=== PATIENT | female | born 1935 | race Caucasian/White ===

== ENCOUNTER 2022-12-06 11:00 | Outpatient (REF) | payer MEDICARE, SELFPAY ==
[2022-12-06 12:48] LABS: Vitamin B12 451 pg/mL (200-900)
== END 2022-12-06 11:01 | disposition home or self-care (01) ==
LOC: HO.LAB 11:00
PROVIDERS: PCP Student in an Organized Health Care Education/Training Program; Visit Provider Psychiatry & Neurology Neurology
DX: G31.84 Mild cognitive impairment of uncertain or unknown etiology (principal)
CPT/HCPCS: 36415; 82607

== ENCOUNTER 2024-08-13 11:45 | Outpatient (AMB) | payer MEDICARE, SELFPAY ==
--- NOTE | 2024-08-13 12:11 | A.OFFVIS_ITS ---
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 She took topiramate before prescription and did. Now she was feeling better and was not having any active symptoms. [facility] Medical History (Updated 08/13/24 @ 12:19 by Siddharth Medeiros MD) Hypertension GERD (gastroesophageal reflux disease) Migraine without aura MCI (mild cognitive impairment) Review of Systems Const Details: Constitutional:?No fever, chills, fatigue, weight loss, or night sweats. HEENT:?No headache, vision changes, hearing loss, nasal congestion, sore throat. Neurological:?No dizziness, syncope, seizures, numbness, tingling, weakness, tremors, memory loss. Psychiatric:?No anxiety, depression, mood swings, sleep disturbance, or lim ucinations. Endocrine:?No heat/cold intolerance, polydipsia, polyuria, or hair/skin changes. Hematologic/Lymphatic:?No easy bruising, bleeding, or lymphadenopathy. Integumentary (Skin):?No rash, lesions, itching, or color changes. ? Physical Exam Neuro Other: Mental Status: Alert and oriented to person, place, and time. Normal attention. Normal spontaneous speech, fluency, and comprehension. No obvious issues with mood and memory. Affect is appropriate. Cranial Nerves: CN II: Visual morgan full to confrontation, visual acuity intact. CN III, IV, : Pupils equal, round, reactive to light and accommodation. Extraocular movements are normal. CN V: Facial sensation is normal. CN VII: Facial movements symmetrical. CN VIII: Hearing intact to bedside conversation is normal. CN IX, X: Palate elevates symmetrically. CN XI: Shoulder shrug and head turn symmetrical. CN XII: Tongue midline without atrophy or fasciculations. Extrapyramidal: Full facial expressions and blinking. No rigidity. Movements are appropriate with no tremor or abnormality. Speech: Normal; no dysarthria or tremor. Assessment & Plan Assessment & Plan (1) Migraine equivalent: Code(s): G43.109 - Migraine with aura, not intractable, without status migrainosus Category: Medical (2) Benign positional vertigo: Code(s): H81.10 - Benign paroxysmal vertigo, unspecified ear Category: Medical Qualifiers: Laterality: unspecified laterality Qualified Code(s): H81.10 - Benign paroxysmal vertigo, unspecified ear Plan Impression: 1. Migraine and migraine equivalent syndrome 2. Vertigo probably of positional benign type. Recommendations: As symptoms were resolved. No further prescription wasgiven. Coding Level of Care Code Tele Est Pt Level 4 (53057) Diagnoses Migraine equivalent G43.109 Benign paroxysmal positional vertigo, unspecified laterality H81.10 Laterality: unspecified laterality
--- OUTSIDE RECORDS SUMMARY | 2024-08-13 12:56 | XMS_ITS | Patient Health Record ---
Author Organization [facility] Address [address] [place] [address] Care Team Providers Care Logistics Research Engineer Name Role Phone Lynne Huffman Primary Care Provider Reason For Referral No Information Medications Medication SIG (Take, Route, Frequency, Duration) Notes Start Date End Date Status Lisinopril 10 MG Tablet 1 tablet Orally Once a day; Duration: 30 day(s) Active Aspirin 81 MG Tablet Delayed Release 1 tablet Orally Once a day; Duration: 30 day(s) Active Plan Of Treatment No Information
--- OUTSIDE RECORDS SUMMARY | 2024-08-13 12:56 | XMS_ITS | Clinical Summary ---
Author Organization [facility] Address [address] [place] [address] Care Team Providers Care Veneer Sorter Name Role Phone Shakira Rodas PA-C Primary Care Provider Source Comments PLEASE NOTE, if this patient is a minor, it may be UNLAWFUL to discuss sensitive information that is contained in these records (such as FAMILY PLANNING, MENTAL HEALTH or SUBSTANCE ABUSE) with the minor patient's parent or other person without the patient's specific authorization.[facility] Allergies No known active allergies Medications pantoprazole (PROTONIX) 40 mg EC tabletIndications: heartburn Take 1 Tablet by mouth every morning before breakfast Indications: heartburn 90 Tablet 2 04/04/19 22 Active enalapril maleate (VASOTEC) 10 mg tabletIndications: hypertension Take 1 Tablet by mouth once daily Indications: high blood pressure 90 Tablet 2 04/04/19 22 Active simvastatin (ZOCOR) 40 mg tabletIndications: hypercholesterolem ia Take 1 Tablet by mouth nightly at bedtime Indications: high cholesterol 90 Tablet 2 04/04/19 22 Active cholecalciferol, vitamin D3, 50 mcg (2,000 unit) capsuleIndications :Takes daily multivitamins Take 1 Capsule by mouth once daily For heathy bones 90 Capsule 2 04/04/19 22 Active acetaminophen (TYLENOL 8 HOUR) 650 mg CR tabletIndications: Generalized osteoarthritis of multiple sites Take 1 Tablet by mouth every 8 (eight) hours as needed for pain 60 Tablet 2 04/04/19 22 Active cetirizine (ZYRTEC) 10 mg tabletIndications: Seasonal allergic rhinitis due to pollen TAKE 1 TABLET BY MOUTH EVERY DAY 90 Tablet 01/03/20 22 Active Active Problems Problem Noted Date Diagnosed Date Takes daily multivitamins 04/04/2021 Essential hypertension 01/05/2021 Mixed hyperlipidemia 01/05/2021 Chronic GERD 01/05/2021 Class 1 obesity 01/05/2021 Generalized osteoarthritis of multiple sites 02/2020 Immunizations Immunization Administration Dates Next Due Moderna COVID-19 Vaccine, bl ue cap purple label, 6-11 Primary Series 06/28/2021 Moderna COVID-19 Vaccine, re d cap blue label, 12+ Primary Series 12/22/2020 PFIZER COVID VACCINE, PURPLE CAP, 12+ 12/22/2020 ,03/31/2020 TDAP 04/04/2021 ZOSTER VACCINE, RECOMBINANT (SHINGRIX) ,04/04/2021 Social History Tobacco Use Types Packs/Day Years Used Date Smoking Tobacco: Never Smokeless Tobacco: Never Tobacco Cessation:Counseling Given: Yes Alcohol Use Standard Drinks/Week Comments Never 0 (1 standard drink = 0.6 oz pur e alcohol) Social Connections Answer Date Recorded Connectedness 0 10/18/2023 Financial Resource Strain Answer Date R ecorded Financial Resource Strain 0 2020 Stress Answer Date Recorded Stress 0 01/05/2021 Physical Activity Answer Date Recorded Physical Activity 0 01/05/2021 Food Insecurity Answer Date Recorded Food 0 11/01/2023 Transportation Needs Answer Date Record ed Transportation 0 01/05/2021 Housing Stability Answer Date Recorded Housing 0 01/05/2021 Safety and Environment Answer Date Nhan rded Safety 0 01/05/2021 Utilities Answer Date Recorded Utilities 0 01/05/2021 Employment Answer Date Recorded Stress 0 10/18/2023 Comments No Sex and Gender Information Value Date Recorded Sex Assigned at Female 01/05/2021 9:11 AM PST Legal Sex Female 8:37 AM PDT Gender Identity Female 01/05/2021 9:11 AM PST Sexual Orientation Straight 01/05/2021 9: 11 AM PST Last Filed Vital Signs Vital Sign Reading Time Taken Comments Blood Pressure 142/80 07/07/2021 11:02 AM EDT Pulse 73 07/07/2021 11:02 AM EDT Temperature 36.9 C (98.4 F) 07/07/2021 11:02 AM EDT Respiratory Rate 16 07/07/2021 11:02 AM EDT Oxygen Saturation 97% 07/07/2021 11:02 AM EDT Inhaled Oxygen Concentration - - Weight 79.4 kg (175 lb) 07/07/2021 11:02 AM EDT Height 160 cm (5' 3 ) 07/07/2021 11:02 AM EDT Body Mass Index 31 07/07/2021 11:02 AM EDT Plan of Treatment Health Maintenance Due Date Last Done Comments Tobacco Screening 1936 Advanced Care Planning 1935 Medicare Annual Wellness Visit 1954 Imm-Pneumococcal 50+ (1 of 1 - PCV) 1986 Bone Density Screening 2001 Imm-RSV (adult) (1 - 1-dose 75+ series) 2011 Annual Wellness (Adult): Indicated (All Coverage) 04/04/2022 04/04/2021 Falls Prevention 04/04/2022 04/04/2021 [id number]-24 ( season) 2023 06/28/2021, 12/22/2020, 12/22/2020, Additional history exists Alcohol and Drug Screen 02/06/2024 04/04/2021, 01/05 Depression Annual Screen 02/06/2024 04/04/2021 Imm-Influenza (#1) 2024 Imm-DTaP/Tdap/Td (2 - Td or Tdap) 04/04/2031 022 Imm-Zoster, Recombinant Completed 07/07/2021, 04/04 Insurance [employer] MEDICARE COMPLETE CHO Care Teams Veneer Sorter Relationship Specialty Start Date End Date Shakira Rodas PA-C [address] [place] [address] PCP - General 05/13/21
--- OUTSIDE RECORDS SUMMARY | 2024-08-13 12:56 | XMS_ITS | Clinical Summary ---
Author Organization [facility] Address [address] [place] [address] Phone Care Team Providers Care Tourist Camp Attendant Name Role Phone Damian Murray MD Primary Care Provider [phone] Allergies Active Allergy Reactions Criticality Noted Date Comments Other 10/18/2021 seasonal Medications meclizine (ANTIVERT) 25 mg tablet Take 1 Tablet by mouth every 8 hours. Active cetirizine (ZyrTEC) 10 mg tablet TAKE 1 TABLET BY MOUTH DAILY 30 tablet 2 4 Active Calcium 500 With D 500 mg-10 mcg (400 unit) per tablet TAKE 1 TABLET BY MOUTH DAILY WITH BREAKFAST 30 tablet 1 4 Active enalapril (VASOTEC) 10 mg tablet TAKE 1 TABLET BY MOUTH DAILY 100 tablet 2 5 Active topiramate (TOPAMAX) 25 mg tablet Take 1 tablet (25 mg total) by mouth. at bedtime. 5 Active simvastatin (ZOCOR) 40 mg tablet TAKE 1 TABLET BY MOUTH AT BEDTIME 90 tablet 1 5 Active diclofenac (Voltaren Arthritis Pain) 1 % topical gel Apply 2 g topically 4 (four) times a day. 150 g 1 5 Active omeprazole (PriLOSEC) [address] capsule Take 1 capsule (20 mg total) by mouth 1 (one) time each day. Do not crush or chew. 90 each 5 11/12/19 25 Active omeprazole (PriLOSEC) [address] capsule Take 1 capsule (20 mg total) by mouth 1 (one) time each day. Do not crush or chew. 90 each 5 08/14/19 25 Discontinu ed(Reorder ) Active Problems Problem Noted Date Diagnosed Date Low vitamin D level 02/23/2022 Gastroesophageal reflux disease without esophagi tis 10/18/2021 Overview (11/14/2023): Last Assessment & Plan: Pt has H/O GERD. on pantoprazole for> 2 Y . plan: hold it for now. Expain the reason. Pt understands. Mixed hyperlipidemia 10/18/2021 Overview (11/14/2023): Last Assessment & Plan: Pt on simvastatin. plan: rechck lipid panel and cont same med. Refil given. Primary hypertension 10/18/2021 Overview (11/14/2023): Last Assessment & Plan: Today BP 110/67, On enalapril. Compliant. plan cont same med labs ordered. Stress incontinence of urine 10/18/2021 Overview (11/14/2023): Last Assessment & Plan: Pt C/C stress incontinence. Plan: Kegel exercise expained. She understand it. Encounters Date Type Department Care Team Description 06/04/2024 10:00 AM EDT Consult Orthopedic Surgery [address] [place] [phone] Lisa Rockwell PA Trigger finger, left middle finger (Primary Dx); Generalized osteoarthritis of hand; Left carpal tunnel syndrome 05/22/2024 9:00 AM EDT Office Visit Internal Medicine [address] [place] [phone] Damian Murray MD Generalized osteoarthritis of hand (Primary Dx); Anorexia; Gastroesophageal reflux disease without esophagitis; Migraine without status migrainosus, not intractable, unspecified migraine type; Stress incontinence of urine 05/22/2024 Telephone Internal Medicine [address] [place] [address] Damian Murray MD from Last 3 Months Immunizations Name Administration Dates Next Due Influenza trivalent, 0.5mL ( Fluzone High-dose) 65yo and older 10/18/2021 Social History Tobacco Use Types Packs/Day Years Used Date Smoking Tobacco: Never Smokeless Tobacco: Never Tobacco Cessation:Counseling Given: Not Answered Alcohol Use Standard Drinks/Week Comments Never 0 (1 standard drink = 0.6 oz pur e alcohol) Comments Unknown Sex and Gender Information Value Date Recorded Sex Assigned at Not on file Legal Sex Female 4:55 AM EST Gender Identity Not on file Sexual Orientation Not on file Obstetrics History Last Filed Vital Signs Vital Sign Reading Time Taken Comments Blood Pressure 124/82 05/22/2024 9:08 AM EDT Pulse 73 05/22/2024 9:08 AM EDT Temperature 36.1 C (96.9 F) 04/22/2024 11:17 AM EDT Respiratory Rate - - Oxygen Saturation 100% 05/22/2024 9:08 AM EDT Inhaled Oxygen Concentration - - Weight 68 kg (150 lb) 06/04/2024 10:11 AM EDT Height 160 cm (5' 3 ) 06/04/2024 10:11 AM EDT Body Mass Index 26.57 06/04/2024 10:11 AM EDT Plan of Treatment Upcoming Encounters Date Type Department Care Team (Late st Contact Info) Description 09/04/2024 1:00 PM EDT Office Visit Orthopedic Surgery - [place] [facility] [address] [place] [phone] Lisa Rockwell PA [address] [facility] [address] [place] [address] 11/24/2024 1:00 PM EDT Office Visit Internal Medicine [facility] [address] [facility] [address] [place] [phone] Damian Murray MD [address] [facility] [address] [place] [address] Health Maintenance Due Date Last Done Comments Pneumococcal Vaccine: 50+ Years (1 of 1 - PCV) 1986 RSV Immunization Adult Patients (1 - 1-dose 75+ series) 2011 Depression Screening 01/15/2022 Falls Risk Assessment 01/15/2022 Osteoporosis Screening (Bone Density Screening) 01/15/2022 Social Influencers of Health Screening 01/15/2022 COVID-19 Vaccine (3 - 2023-2 5 season) 2023 06/28/2021, 12/22/2020, 03/31/2020 Hypertension/CHF/CAD Annual BMP Blood Test 06/24/2024 06/25/2023, 06/25/2023, 07/07/2021 Influenza Vaccine (#1) 2024 10/18/2021 Cholesterol Screening (Lipid Panel) 06/24/2028 06/25/2023, 06/25/2023, 01/05/2021 DTaP,Tdap,and Td Vaccines (2 - Td or Tdap) 04/04/2031 04/04/2021 Zoster Vaccines Completed 07/07/2021, 04/04/2021 HIB Vaccines Aged Out No longer eligi ble based on patient's age to complete this topic HPV Vaccines Aged Out No longer eligi ble based on patient's age to complete this topic Hepatitis A Vaccines Aged Out No long er eligible based on patient's age to complete this topic Hepatitis B Vaccines Aged Out No long er eligible based on patient's age to complete this topic IPV Vaccines Aged Out No longer eligi ble based on patient's age to complete this topic MMR Vaccines Aged Out No longer eligi ble based on patient's age to complete this topic Meningococcal ACWY Vaccine Aged Out N o longer eligible based on patient's age to complete this topic Meningococcal B Vaccine Aged Out No l onger eligible based on patient's age to complete this topic RSV Immunization Patients Under 20 months Aged Out No longer eligible b ased on patient's age to complete this topic Varicella Vaccines Aged Out No longer eligible based on patient's age to complete this topic Procedures Procedure Name Priority Date/Time Associated Diagnosis Comments HAND/UPPER EXTREMITY ARTHROCENTESIS Routine 06/04/2024 10:00 AM EDT Trigger finger, left middle finger HM ANNUAL BMP BLOOD TEST Routine 06/25/2023 LIPID PANEL Routine 06/25/2023 from Last 3 Months or Most Recently Relevant to Health Maintenance Results * Hand / UE Inj/Asp (06/04/2024 10:00 AM EDT) Narrative Kisala, Kacper, PA - 06/04/2024 10:00 AM EDT JOHN Degroot 06/04/2024 11:30 AM Hand / UE Inj/Asp for trigger finger Indications: pain Details: 27 G needle, volar approach Medications: 40 mg triamcinolone acetonide 40 mg/mL Outcome: tolerated well, no immediate complications Site was prepped in standard fashion using alcohol swab, sterile technique was used to perform the injection, the patient tolerated the procedure well and a band-aid dressing was applied Informed Consent: Laterality: Left Relevant images/test results available and reviewed: yes Health status cleared: Yes Procedure/treatment, purpose, treatment alternatives, risks/potential complications and benefits explained: yes Risk/complications/benefits details: Risk/complications/benefits details: Risks and benefits of corticosteroid injection were discussed, including risk of pain, bleeding, infection, tissue attenuation, tendon rupture, changes in skin color, and injury to surrounding structures such as arteries, veins and nerves. We also discussed the patient may develop worsening pain for a few days before having improvement in their symptoms. Patient questions answered: yes Patient agrees, verbalizes understanding, and wants to proceed: yes Consent given by: Patient Informed consent discussion completed by Physician/URBAN with patient: Verbal Pre-procedure timeout performed: yes Result [facility] Lisa LOPEZ IN CLINIC/BEDSIDE ORDERABLES Fi nal Result * Annual BMP Blood Test (06/25/2023) Pathologist [facility] Annual BMP Blood Test Abstracted Result [facility] Historical Provider HEALTH MAINTENANCE Final Result * (ABNORMAL) Lipid panel (06/25/2023) Pathologist [facility] LDL/HDL Ratio 4 0 - 4 Triglycerides 149 0 - 150 mg/dL Cholesterol 192 0 - 200 mg/dL HDL 45 >=40 mg/dL LDL Cholesterol 118(A) 0 - 100 mg/dL Blood Venous blood specimen / Unknown Historical Provider LAB BLOOD ORDERABLES Charisse l Result from Last 3 Months or Most Recently Relevant to Health Maintenance Insurance [employer] Care Teams Tourist Camp Attendant Relationship Specialty Start Date End Date Damian Murray MD [address] [place] [address] PCP - General Internal Medicine 08/30/21
== END 2024-08-13 13:40 | disposition home or self-care (01) ==
LOC: HO.HSM 11:46
PROVIDERS: PCP Student in an Organized Health Care Education/Training Program; Visit Provider Psychiatry & Neurology Neurology
DX: G43.109 Migraine with aura, not intractable, without status migrainosus (principal); H81.10 Benign paroxysmal vertigo, unspecified ear
CPT/HCPCS: 99213

== ENCOUNTER → 2024-08-13 11:45 | Outpatient (BNVA) | payer MEDICARE, SELFPAY | PROVIDERS: PCP Student in an Organized Health Care Education/Training Program; Visit Provider Psychiatry & Neurology Neurology | DX: G43.109 Migraine with aura, not intractable, without status migrainosus (principal); H81.10 Benign paroxysmal vertigo, unspecified ear | CPT/HCPCS: 99212 ==